=== PATIENT | female | born 1965 | race Caucasian/White ===

== ENCOUNTER 2019-04-17 20:32 | Emergency (ER) | payer OTHER, SELFPAY ==
--- NOTE | ~2019-04-17 | XR_ITS ---
XR chest 2V 04/17/2019 21:33 Indication: Shortness of breath Procedure: PA and lateral views of the chest Comparison: No prior studies for comparison. Findings: Heart size normal. No focal air space disease, pulmonary edema, pleural effusion or suspect ed pneumothorax. No acute osseous abnormality. Impression: 1: No acute cardiopulmonary disease. Reviewed, dictated and finalized at location A. OR [employer] DEVELOPER Impression: 1: No acute cardiopulmonary disease.
--- NOTE | ~2019-04-17 | CT_ITS ---
EXAMINATION: CT abdomen pelvis w con DATE: 04/17/2019 21:42 INDICATION: Right lower quadrant pain with fever TECHNIQUE: Computed tomography (CT) of the abdomen and pelvis was performed with 100 cc Omnipaque 350 intravenous contrast. The dose-length product was 392.12 mGy-cm. Automated exposure control and iter ative reconstruction technique were employed. COMPARISON: None. FINDINGS: No significant pleural or pericardial effusion. Heart size is normal. There are gallstones. The liver, spleen, pancreas, adrenal glands are unremarkable. There are small s ubcentimeter hypodensities of both kidneys, most likely benign cysts. No hydronephrosis. Nonobstructi ve bowel gas pattern. The appendix is not positively visualized. There is no pericecal inflammatory change to suggest appendicitis. Mild emphysema noted in the lung bases. There is atherosclerosis with out aneurysm. Subtle subcentimeter hypodensity left hepatic lobe, most likely benign cyst or hemangio ma. IMPRESSION: 1. No acute abdominal abnormality identified. Reviewed, dictated and finalized at location A. [employer] MANAGER
[2019-04-17 20:39] VITALS: BP 204/83; PULSE 108; RESP 20; TEMP 36.1; O2SAT 91
[2019-04-17 20:48] VITALS: PULSE 112
[2019-04-17 20:49] VITALS: BP 200/97; PULSE 109; RESP 18; O2SAT 91
--- NOTE | 2019-04-17 20:53 | ED.GENADULT ---
HPI - General Adult General Chief complaint: Weakness Stated complaint: dehydration, fever/cough/congestion Time Seen by Provider: 04/17/19 20:44 Source: patient Mode of arrival: ambulatory Limitations: no limitations History of Present Illness HPI narrative: A 53 y/o female pt presents to the ED, with c/o flu-like symptoms that began on (2 days ago). Pt notes having a cough, SOB, lightheadedness, dizziness, nausea, fever (101F), fatigue, flank pain, and ABD pain, but denies CP, vomiting, diarrhea, dysuria, or frequent urination. She states that her granddaughters were sick with similar Sx in the past week. Pt denies taking any medication prior to arrival. Per RN, pt was 91% O2 on RA upon arrival to the ED. Pt was placed on 2L O2 via NC. complaint: Flu-like symptoms Onset (ago): day(s) (2) Associated symptoms: cough, shortness of breath and other (fever 101F, dizziness, lightheadedness, nausea, fatigue, flank pain, ABD pain) Treatments prior to arrival: none Related Data Allergies Allergy/AdvReac Type Severity Reaction Status Date / Time No Known Allergies Allergy Verified 04/17/19 20:46 Review of Systems Review of Systems: All systems reviewed & are unremarkable except as noted in HPI and below Constitutional: Constitutional: Reports fatigue and Reports fever(s) (101F) ENT: Reports dizziness Cardiovascular: Cardiovascular: Denies chest pain and Reports dyspnea Respiratory: Respiratory: Reports cough Gastrointestinal: Gastrointestinal: Reports abdominal pain, Denies diarrhea, Reports nausea and Denies vomiting Genitourinary: Genitourinary: Denies nocturia, Denies dysuria and Reports flank pain Neurologic: Reports other (lightheadedness) [facility] Past Medical History Medical History (Updated 04/17/19 @ 22:59 by Joanne Francois MD) COPD (chronic obstructive pulmonary disease) High cholesterol Hypertension Hypothyroidism Surgical History Surgical History (Updated 04/17/19 @ 21:42 by SILVERIO Vanegas) History of thyroidectomy Social History Social History (Updated 04/17/19 @ 21:42 by SILVERIO Vanegas) Smoking status: Current every day smoker Tobacco type: cigarettes Additional smoking assessment comments: 1 pack per day Exam Const: General: cooperative, no acute distress, alert and ill appearing (mildly) Nutritional Appearance: well nourished Orientation/consciousness: patient oriented x3 Limitations: no limitations HENMT: Mouth: Yes lip normal and Yes moist mucous membranes Resp: Effort & Inspection: normal respiratory effort Auscultation: other (breath sounds diminished throughout) Cardio: Rate: tachycardic Rhythm: regular rhythm GI: GI Palp: Yes abdominal tenderness (diffuse, greatest in lower quadrants) and Yes Soft to palpation Auscultation: normal bowel sounds Back/Spine/Pelvis: Back: CVA tenderness (bilateral) Skin: General skin exam: normal color Neuro: General: patient oriented x3 Cognition (Neuro): normal cognition Speech: normal speech Extrem: General: normal to inspection, full ROM and no clubbing, cyanosis or edema Psych: Mental Status: mental status grossly normal Affect: normal affect Attitude: cooperative Course Vital Signs Vital signs: Vital Signs Temperature 96.9 F L 04/17/19 20:39 Pulse Rate 108 H 04/17/19 20:39 Respiratory Rate 20 04/17/19 20:39 Blood Pressure 204/83 H 04/17/19 20:39 Pulse Oximetry 91 04/17/19 20:39 Temperature 96.9 F L 04/17/19 20:39 Pulse Rate 100 04/17/19 22:28 Respiratory Rate 20 04/17/19 22:28 Blood Pressure 158/80 H 04/17/19 22:28 Pulse Oximetry 95 04/17/19 22:28 Medical Decision Making Vital Signs Vital Signs: Vital Signs Temperature 96.9 F L 04/17/19 20:39 Pulse Rate 108 H 04/17/19 20:39 Respiratory Rate 20 04/17/19 20:39 Blood Pressure 204/83 H 04/17/19 20:39 Pulse Oximetry 91 04/17/19 20:39 Temperature 96.9 F L 04/17/19 20:39 Pulse Rat
[2019-04-17 21:00] LABS: Basophils Absolute Auto 0.1 K/mm3 (0.0-0.1); Basophils Percent Auto 0.4 % (0.2-1.2); Eosinophils Percent Auto 0.1 % (0-4.4); Hematocrit 42.7 % (37.0-47.0); Hemoglobin 14.4 g/dL (12.0-15.0); Immature Granulocyte Absolute 0.09 K/mm3 (0.00-0.031); Immature Granulocyte Percent A 0.5 % (0-0.5); Lymphocytes Absolute Auto 1.39 K/mm3 (0.9-3.2); Lymphocytes Percent Auto 7.3 % (18.3-44.2); Mean Corpuscular HGB Conc 33.7 g/dl (32-36); Mean Corpuscular Hemoglobin 30.7 pg (26-34); Mean Platelet Volume 9.2 fl (7.4-10.4); Monocytes Absolute Auto 1.4 K/mm3 (0.1-0.6); Monocytes Percent Auto 7.1 % (2.6-8.5); Neutrophils Absolute Auto 16.1 K/mm3 (1.3-6.7); Neutrophils Percent Auto 84.6 % (45.5-73.1); Platelet Count Result 301 k/mm3 (150-375); Red Blood Count 4.69 M/mm3 (4.2-5.4); Red Cell Distribution Width 13.2 % (11.5-14.5)
[2019-04-17] MEDS: LACTATED RINGERS 1,000 ML 999 ML IV CONT (21:11)
[2019-04-17 21:15] LABS: Alanine Aminotransferase 20 U/L (4-35); Albumin Level 4.7 g/dL (3.5-5.1); Alkaline Phosphatase 66 U/L (38-126); Aspartate Amino Transferase 28 U/L (14-36); Bilirubin,Total 1.4 mg/dL (0.2-1.3); Blood Urea Nitrogen 10 mg/dL (7-17); Calcium 8.9 mg/dL (8.4-10.2); Carbon Dioxide 26 mmol/L (22-30); Chloride 97 mmol/L (98-107); Estimated Glomerular Filt Rate > 60; Glucose 128 mg/dL (65-105); Lipase 112 U/L (23-300); Potassium 3.6 mmol/L (3.4-5.0); Sodium 139 mmol/L (137-145)
[2019-04-17 21:21] LABS: Alveolar/Arterial O2 Gradient 41.5 mmHg; Base Excess ABG -0.2 mEq/l (+/-2.0); Carboxyhemoglobin 2.2 % THb (0-2.0); Fractional Inspired Oxygen 21 %; HCO3 ABG 23.5 mEq/l (22.0-26.0); Methemoglobin ABG 0.2 %THb (0-1.5); Modified Allen's Test Pass; Oxygen Content ABG 18.3 %vol (16.0-22.0); Oxygen Saturation ABG 93.8 % (95.0-100.0); Oxyhemoglobin 90.8 % THb (90.0-100.0); PCO2 ABG 35.5 mmHg (35.0-45.0); PO2 ABG 65.7 mmHg (80.0-100.0); PO2 FiO2 Ratio Arterial Blood 3.13 %; Reduced Hemoglobin 6.8 %THb (0-5.0); Site Drawn LEFT RADIAL; Total Hemoglobin 14.3 g/dL (12.0-18.0); pH ABG 7.438 (7.350-7.450)
[2019-04-17 21:22] LABS: Device ROOM AIR
[2019-04-17 21:30] LABS: Lactic Acid Reflex 1.1 mmol/L (0.7-2.1)
[2019-04-17 21:31] LABS: Add Urine Microscopic? YES; Appearance Urine Cloudy (Clear); Bacteria Urine Trace /hpf; Bilirubin Urine Negative (Negative); Blood Urine Negative (Negative); Color Urine Yellow (Yellow); Glucose Urine UA Negative (Negative); Ketones Urine Trace mg/dL (Negative); Leukocyte Esterase Ur Negative LEU/UL (Negative); Mucus Urine Moderate /lpf; Nitrate Urine Negative (Negative); Protein Urine Negative (Negative); Specific Grav Ur 1.023 (1.001-1.035); Squamous Epithelial Cell Urine Many /hpf (Few); Urobilinogen Urine Negative mg/dL (<2.0); WBC Urine 0-3 /hpf
[2019-04-17 21:50] VITALS: PULSE 102; RESP 20; O2SAT 94
[2019-04-17 22:28] VITALS: BP 158/80; PULSE 100; RESP 20; O2SAT 95
[2019-04-17 23:17] VITALS: BP 132/98; PULSE 101; RESP 24; O2SAT 93
== END 2019-04-17 23:18 | disposition home or self-care (01) ==
PROVIDERS: Emergency Provider Emergency Medicine
DX: E86.0 Dehydration (principal); J40 Bronchitis, not specified as acute or chronic; B34.9 Viral infection, unspecified; J44.9 Chronic obstructive pulmonary disease, unspecified; I10 Essential (primary) hypertension; E78.00 Pure hypercholesterolemia, unspecified; E89.0 Postprocedural hypothyroidism; F17.210 Nicotine dependence, cigarettes, uncomplicated
CPT/HCPCS: 36415; 36600; 71046; 74177; 80053; 81001; 82375; 82805; 83050; 83605; 83690; 85025; 87804; 96361; 96365; 99284; J0131; J7120; Q9967

== ENCOUNTER 2021-06-11 13:45 | Emergency (ER) | payer OTHER, SELFPAY ==
[2021-06-11 13:50] VITALS: BP 187/89; PULSE 77; RESP 16; TEMP 36.6; O2SAT 100
--- NOTE | 2021-06-11 14:02 | ED.SKABFB ---
HPI - Skin/Abscess/Foreign Bdy General Chief complaint: Skin/Abscess/Foreign Body Stated complaint: Rash Time Seen by Provider: 06/11/21 14:02 Source: patient Mode of arrival: ambulatory Limitations: no limitations History of Present Illness HPI narrative: Ms. Cordoba is a 55 year old female patient presenting to the clinic today with c/o a rash to her face since Friday morning. She reports she developed this rash [place] Rash is blistered and itching and also painful and pustular in areas. Rash started underneath her right and has spread to her entire face. She denies any trouble breathing, swallowing, or tongue swelling. Related Data Home Medications Medication Instructions Recorded Confirmed albuterol 90 mcg INHALATION TID PRN 06/11/21 06/11/21 atorvastatin 40 mg PO DAILY 06/11/21 06/11/21 clonidine HCl 0.1 mg PO BID 06/11/21 06/11/21 duloxetine 60 mg PO BID 06/11/21 06/11/21 hydrochlorothiazide 25 mg PO DAILY 06/11/21 06/11/21 irbesartan 150 mg PO DAILY 06/11/21 06/11/21 levothyroxine 112 mcg PO DAILY 06/11/21 06/11/21 metoprolol succinate 50 mg PO DAILY 06/11/21 06/11/21 trazodone 150 mg PO HS 06/11/21 06/11/21 Allergies Allergy/AdvReac Type Severity Reaction Status Date / Time No Known Allergies Allergy Verified 06/11/21 14:00 Review of Systems Review of Systems: Pertinent positives per HPI. Patient denies any fever, chills, headache, visual changes, dizziness, cough, runny nose, sore throat, shortness of breath, chest pain, palpitations, nausea, vomiting, diarrhea, constipation, abdominal pain, or any urinary issues. PMFSH Comments At the time of my signature, I reviewed and agree with the nursing past medical, surgical, social, and family history. There is no relevant family history pertinent to the patient complaint. Exam Narrative: General: Well-developed, well nourished, in no apparent distress Head: Normocephalic, atraumatic. Cardio: Regular rate and rhythm, s1 and s2 normal, no murmur appreciated. Resp: Clear to auscultation bilaterally, no rhonchi, rales, wheezing or rubs. Integumentary: [place], warm, and dry, red, blistered, clustered vesicular rash to the entire face. Has eyelid swelling to the right eye. Some of these vesicular lesions have yellow exudate with mild induration-possible secondary infection Course Course Emergency Course: Portions of this record may have been created with voice recognition software. Level of Care: Express Care Visit Vital Signs Vital signs: Vital Signs Temperature 36.6 C 06/11/21 13:50 Pulse Rate 77 06/11/21 13:50 Respiratory Rate 16 06/11/21 13:50 Blood Pressure 187/89 H 06/11/21 13:50 Pulse Oximetry 100 06/11/21 13:50 Temperature 36.6 C 06/11/21 13:50 Pulse Rate 77 06/11/21 13:50 Respiratory Rate 16 06/11/21 13:50 Blood Pressure 187/89 H 06/11/21 13:50 Pulse Oximetry 100 06/11/21 13:50 Vital signs reviewed MDM - Skin/Abscess/Foreign Bdy MDM Narrative Medical decision making narrative: At the time of visit patient is having a vesicular itchy rash scattered to the face. [place] and feels that she contracted poison madelaine. We will go ahead and give her a dose of dexamethasone 10 mg IM in the clinic as well as give her oral prednisone and a course of doxycycline for a secondary infection. She voiced understanding of discharge instructions. Differential Diagnosis Differential diagnosis: Likely abscess of skin or subcutaneous tissue, viral exanthem, dermatophytosis, urticaria, herpes zoster, allergic reaction to drug, cellulitis, eczema, insect bites, impetigo and contact dermatitis Discharge Plan Discharge Clinical Impression: Allergic contact dermatitis due to plant, Skin infection Patient Disposition: Home, Self-Care Condition: Stable Instructions: Antibiotic Form, Cellulitis (ED), Poison Madelaine (ED) Additional Instructions: Avoid scratching. Asha de jesus
== END 2021-06-11 14:30 | disposition home or self-care (01) ==
PROVIDERS: Emergency Provider Nurse Practitioner Family; PCP Internal Medicine
DX: L23.7 Allergic contact dermatitis due to plants, except food (principal); E78.00 Pure hypercholesterolemia, unspecified; I10 Essential (primary) hypertension; J44.9 Chronic obstructive pulmonary disease, unspecified; E89.0 Postprocedural hypothyroidism; F41.9 Anxiety disorder, unspecified; F32.A Depression, unspecified
CPT/HCPCS: 96372; 99213; G0463; J1100

== ENCOUNTER 2021-06-25 19:45 | Emergency (ER) | payer OTHER, SELFPAY ==
[2021-06-25 19:58] VITALS: BP 144/81; PULSE 78; RESP 14; TEMP 36.4; O2SAT 99
--- NOTE | 2021-06-25 20:17 | ED.SKABFB ---
HPI - Skin/Abscess/Foreign Bdy General Chief complaint: Skin/Abscess/Foreign Body Stated complaint: Rash Time Seen by Provider: 06/25/21 20:05 Source: patient, RN notes reviewed and old records reviewed Mode of arrival: ambulatory Limitations: no limitations History of Present Illness HPI narrative: Patient presents today complaint of a rash to her face and neck. She was initially seen here on 06/11/2021 for same rash. She was given 5 days of prednisone for contact dermatitis which she finished. She was also given a prescription for doxycycline which she did not take. States the rash somewhat improved, but came back yesterday worse and has spread to her neck today. She initially thought she had some sort of poison konstantin or poison oak. She is not sure what caused the resurgence of her rash today. Denies shortness of breath, difficulty swallowing, swelling in her mouth. Since returning, she has not tried any [id number] medication for symptoms prior to arrival MD complaint: rash Related Data Home Medications Medication Instructions Recorded Confirmed albuterol sulfate 90 mcg INHALATION Q4-6H PRN 06/25/21 06/25/21 atorvastatin 40 mg PO DAILY 06/25/21 06/25/21 clonidine HCl 0.1 mg PO DAILY 06/25/21 06/25/21 duloxetine 60 mg PO DAILY 06/25/21 06/25/21 famotidine 20 mg PO DAILY 06/25/21 06/25/21 hydrochlorothiazide 25 mg PO DAILY 06/25/21 06/25/21 irbesartan 150 mg PO DAILY 06/25/21 06/25/21 levothyroxine 112 mcg PO DAILY 06/25/21 06/25/21 metoprolol succinate 50 mg PO DAILY 06/25/21 06/25/21 trazodone 150 mg PO DAILY 06/25/21 06/25/21 Allergies Allergy/AdvReac Type Severity Reaction Status Date / Time No Known Allergies Allergy Verified 06/25/21 19:54 Review of Systems Review of Systems: CONSTITUTIONAL: Denies body aches, fever, chills, or sweats. EYES: Denies visual changes, redness, or discharge. ENT: Denies rhinorrhea, congestion, sore throat, or otalgia. CARDIOVASCULAR: Denies chest pain, palpitations, or edema. RESPIRATORY: Denies cough or dyspnea. GASTROINTESTINAL: Denies abdominal pain, nausea, vomiting, or diarrhea. GENITOURINARY: Denies dysuria or hematuria. SKIN: + Rash MUSCULOSKELETAL: Denies back pain, joint pain, or myalgia. NEUROLOGIC: Denies headache, numbness, tingling, or weakness. PSYCH: Denies depression or anxiety. [facility] Past Medical History Medical History (Updated 06/25/21 @ 20:22 by Kelsey Phillips, [facility], ) High cholesterol Hypertension Hypothyroidism Comments At time of signature, I have reviewed and agree with nursing past medical, surgical, social and family history unless otherwise noted. Please see nursing chart for further information. There is no relevant family history pertinent to the presenting complaint Exam Narrative: GENERAL: Well-appearing, well-nourished, and in no acute distress. HEAD: Normocephalic, atraumatic. EYES: EOMI. No redness or drainage. Conjunctivae normal. ENT: Mucous membranes pink and moist. Nares clear. No rhinorrhea. Throat normal. Uvula midline. NECK: Normal AROM. CHEST: No respiratory distress. EXTREMITIES: Normal range of motion. No edema. SKIN: Warm, dry. Capillary refill normal. Normal skin turgor. Erythematous papular and tiny vesicular rash to the generalized face that has spread to the right posterior neck. No signs of bacterial infection. No swelling around the eyes. No swelling of the lips. NEURO: No focal deficits. Alert and oriented x3. Gait steady. PSYCH: Normal affect. No signs of depression or anxiety. Course Course Emergency Course: We will treat patient with another longer course of steroids. Instruct her to take some antihistamines as well. Level of Care: Express Care Visit Vital Signs Vital signs: Vital Signs Temperature 97.5 F L 06/25/21 19:58 Pulse Rate 78 06/25/21 19:58 Respiratory Rate 14 06/25/21 19:58 Blood Pressure 144/81 H 06/25/21 19:58 Pulse Oximetry 99 06/25/21 19:58 Temperatur
== END 2021-06-25 20:30 | disposition home or self-care (01) ==
PROVIDERS: Emergency Provider Nurse Practitioner; PCP Internal Medicine
DX: L25.9 Unspecified contact dermatitis, unspecified cause (principal); I10 Essential (primary) hypertension; E03.9 Hypothyroidism, unspecified
CPT/HCPCS: 99213; G0463